=== PATIENT | male | born 1990 | race Caucasian/White ===

== ENCOUNTER 2023-04-12 13:56 | Emergency (ER) | payer SELFPAY ==
[~2023-04-12] VITALS: Ht 177.8 cm; Wt 82.1 kg
[2023-04-12 14:00] VITALS: BP 123/81
--- NOTE | 2023-04-12 14:15 | NUR ---
PT AMBULATED TO BED 10
--- NOTE | 2023-04-12 14:20 | NUR ---
PT SWABBED FOR COVID AND FLU IN BED 10
[2023-04-12] MEDS ORDERED: IBUP-1842 PO (14:39)
[2023-04-12] MEDS ORDERED: PRED20TA5 PO (14:39)
[2023-04-12] MEDS ORDERED: BENZ200C4 PO (14:39)
[2023-04-12 15:14] VITALS: BP 125/79
--- NOTE | 2023-04-12 15:14 | NUR ---
Patient discharged with v/s stable. Written and verbal after care instructions given and explained. Patient alert, oriented and verbalized understanding of instructions. Ambulatory with steady gait. All questions addressed prior to discharge. ID band removed. Patient advised to follow up with PMD. Rx of BENZONATATE,IBUPROFEN, PREDNISONE given. Patient educated on indication of medication including possible reaction and side effects. Opportunity to ask questions provided and answered.
== END 2023-04-12 15:14 | disposition home or self-care (01) ==
LOC: MED 13:56
DX: R05.9 Cough, unspecified (principal); Z20.822 Contact with and (suspected) exposure to COVID-19; R51.9 Headache, unspecified; Z79.899 Other long term (current) drug therapy
CPT/HCPCS: 71045; 93005; 99285